=== PATIENT | male | born 1955 | race Caucasian/White ===

== ENCOUNTER 2021-02-04 11:01 | Outpatient (CLI) | payer OTHER, SELFPAY ==
--- NOTE | 2021-02-04 11:10 | XRR_ITS ---
PROCEDURE INFORMATION: Exam: XR Left Hand Exam date and time: 02/04/2021 12:15 PM Age: 65 years old Clinical indication: Condition or disease; Arthritis; Type not specified; Hand; Bilateral TECHNIQUE: Imaging protocol: XR Left hand. Views: 3 or more views. COMPARISON: No relevant prior studies available. FINDINGS: Bones/joints: Mild chronic degenerative osteoarthritis is present with mild joint space narrowing and mild sclerosis predominantly in the 1st metacarpophalangeal joint and DIP joints. No fracture or other acute abnormalities are seen. There is a benign cyst in the shaft of the proximal phalanx of the ring finger. Soft tissues: Normal. XR/XR hand LT 2V [id number] IMPRESSION: Mild chronic degenerative osteoarthritis. No acute abnormality.
--- NOTE | 2021-02-04 11:10 | XRR_ITS ---
PROCEDURE INFORMATION: Exam: XR Right Hand Exam date and time: 02/04/2021 12:13 PM Age: 65 years old Clinical indication: Condition or disease; Arthritis; Type not specified; Hand; Bilateral TECHNIQUE: Imaging protocol: XR Right hand. Views: 1 or 2 views. COMPARISON: No relevant prior studies available. FINDINGS: Bones/joints: Mild chronic degenerative osteoarthritis is present predominantly in the 1st metacarpal phalangeal joint and in the DIP joints with mild narrowing sclerosis. No fracture or other acute bony abnormalities are seen. Soft tissues: Normal. XR/XR hand RT 2V [id number] IMPRESSION: Mild chronic degenerative osteoarthritis. No acute abnormality.
== END 2021-02-04 11:02 | disposition home or self-care (01) ==
LOC: RAD 11:04
PROVIDERS: Visit Provider Orthopaedic Surgery
DX: M19.041 Primary osteoarthritis, right hand (principal); M19.042 Primary osteoarthritis, left hand
CPT/HCPCS: 73120